=== PATIENT | female | born 1980 | race Caucasian/White ===

== ENCOUNTER 2019-11-09 00:02 | Emergency (ER) | payer BC ==
[~2019-11-09] VITALS: Ht 160 cm; Wt 75.0 kg
[2019-11-09 00:05] VITALS: BP 133/92; TEMP 97.4
[2019-11-09 00:17] LABS: COLLECTION METHOD CLEAN CATCH
[2019-11-09 01:09] LABS: PH 5 (5-8); SQUAMOUS EPITHELIAL None Seen /hpf; URINE APPEARANCE Turbid; URINE BACTERIA None Seen /hpf; URINE BILIRUBIN Negative (NEGATIVE); URINE BLOOD 3+ (NEGATIVE); URINE COLOR Amber; URINE GLUCOSE Negative (NEGATIVE); URINE KETONE Negative (NEGATIVE); URINE LEUKOCYTE ESTERASE 2+ (NEGATIVE); URINE NITRATE Negative (NEGATIVE); URINE PROTEIN(semi-quant) 2+ (NEGATIVE); URINE RBC >50 /hpf; URINE UROBILINOGEN Negative (NEGATIVE)
[2019-11-09] MEDS ORDERED: BACTRIM DS 8001 TAB PO (01:39)
[2019-11-09 02:02] VITALS: PULSE 66
[2019-11-11] MEDS ORDERED: MACROBID 1100 MG/CAP PO (21:13)
== END 2019-11-09 02:02 | disposition home or self-care (01) ==
LOC: COL.ER 00:02
PROVIDERS: Emergency Medicine
DX: R51 Headache (principal); N39.0 Urinary tract infection, site not specified
CPT/HCPCS: J0696; J3010